=== PATIENT | male | born 2000 | race Caucasian/White ===

== ENCOUNTER 2025-01-06 22:09 | Emergency (ER) | payer OTHER ==
[~2025-01-06] VITALS: Ht 193 cm; Wt 93.2 kg
[2025-01-06 22:11] VITALS: TEMP 97.7
[2025-01-06 23:00] LABS: PLATELET COUNT, AUTOMATED 203 10^3/uL (150-450)
[2025-01-06 23:28] LABS: ALT/SGPT 23 U/L (7.0-40); AST/SGOT 20 U/L (<34); CALCIUM LEVEL 9.5 MG/DL (8.5-10.1); CARBON DIOXIDE LEVEL 32 MMOL/L (20-31); CHLORIDE LEVEL 101 MMOL/L (98-107); CREATININE FOR GFR 1.06 MG/DL (0.70-1.30); GLOMERULAR FILTRATION RATE > 90.0 (>60); POTASSIUM SERUM 4.2 MMOL/L (3.5-5.1); SODIUM LEVEL 142 MMOL/L (136-145)
[2025-01-06 23:45] LABS: ATYPICAL LYMPH 1 % (0-5); EOSINOPHILS 22 % (0-3); LYMPHOCYTES 40 % (16-44); MONOCYTES 3 % (0-5); NEUTROPHILS 34 % (28-66)
[2025-01-06 23:46] LABS: PLATELET ESTIMATE NORMAL (NORMAL)
[2025-01-07 00:44] LABS: KETONE, URINE AUTO RFX NEGATIVE (NEGATIVE); LEUKOCYTE ESTERASE UR AUTO RFX NEGATIVE (NEGATIVE); NITRITE, URINE AUTO RFX NEGATIVE (NEGATIVE); RBC, URINE AUTO RFX 1 /HPF (0-3); SQUAM EPITHELIAL CELL UR AURFX 0 /HPF (0-6); WBC, URINE AUTO RFX 0 /HPF (0-3)
[2025-01-07 03:20] VITALS: BP 120/71
[2025-01-07 03:30] VITALS: O2SAT 98
[2025-01-07] MEDS ORDERED: PEPC1TAB5 PO (03:42)
[2025-01-07] MEDS: MAALOX 30 ML SUSP *UDC PO ONE (03:53)
[2025-01-07] MEDS: FAMOTIDINE 20 MG TAB PO ONE (03:53)
== END 2025-01-07 03:59 | disposition home or self-care (01) ==
LOC: M ED 22:09
DX: R10.84 Generalized abdominal pain (principal); K21.9 Gastro-esophageal reflux disease without esophagitis